=== PATIENT | female | born 1955 | race Caucasian/White ===

== ENCOUNTER 2023-02-12 15:59 | Emergency (ER) | payer OTHER ==
[2023-02-12 16:06] VITALS: BP 114/57; PULSE 77; RESP 18; BMI 34.2
[2023-02-12] MEDS ORDERED: LACTATED RINGERS SOLUTION 1,000 ML/1,000 ML INFUS.BAG IV ONE (16:42)
[2023-02-12] MEDS ORDERED: ACETAMINOPHEN 1000 MG/100 ML BAG IVPB ONE (16:42)
[2023-02-12] MEDS ORDERED: ACETAMINOPHEN INJECTION 100 ML IVPB ONE (17:17)
[2023-02-12 17:38] LABS: BASO % 0.3 % (0-2.0); EOS % 0.1 % (0-4.5); HEMATOCRIT 35.5 % (32.4-45.2); HEMOGLOBIN 11.9 GM/dL (10.7-15.3); MCH 28.9 pg (25.7-33.7); MCHC 33.6 g/dl (32.0-36.0); MEAN CELL VOLUME 85.9 fl (80-96); MEAN PLT VOLUME 7.3 fl (7.5-11.1); MONO % 12.6 % (3.8-10.2); PLATELET COUNT 183 10^3/uL (134-434); RBC 4.13 M/mm3 (3.60-5.2); WHITE BLOOD COUNT 4.2 K/mm3 (4.0-10.0)
[2023-02-12 17:45] LABS: INR 1.24 (0.83-1.09); PROTHROMBIN TIME (PATIENT) 14.3 SEC (9.7-13.0)
[2023-02-12 17:47] LABS: ACTIVATED PTT 29.6 SECONDS (25.2-36.5)
[2023-02-12 17:54] LABS: POTASSIUM 3.7 mmol/L (3.5-5.1)
[2023-02-12 17:56] LABS: CALCIUM 8.6 mg/dL (8.5-10.1)
[2023-02-12 17:57] LABS: ALBUMIN 3.4 g/dl (3.4-5.0); BLOOD UREA NITROGEN 15.5 mg/dL (7-18)
[2023-02-12 18:00] LABS: CREATININE 0.9 mg/dL (0.55-1.3)
[2023-02-12 18:01] LABS: BILIRUBIN,TOTAL 0.4 mg/dL (0.2-1); TOT PROT 7.4 g/dl (6.4-8.2)
[2023-02-12 21:06] VITALS: TEMP 99.8
== END 2023-02-12 21:07 | disposition home or self-care (01) ==
LOC: JER 15:59
PROC: 3E033NZ Introduction of Analgesics, Hypnotics, Sedatives into Peripheral Vein, Percutaneous Approach (ICD-10-PCS; principal; 2023-02-12)
PROC: 3E0337Z Introduction of Electrolytic and Water Balance Substance into Peripheral Vein, Percutaneous Approach (ICD-10-PCS; 2023-02-12)
DX: R50.9 Fever, unspecified (principal); R05.9 Cough, unspecified; R11.10 Vomiting, unspecified; R19.7 Diarrhea, unspecified; R63.0 Anorexia; R07.9 Chest pain, unspecified; J10.1 Influenza due to other identified influenza virus with other respiratory manifestations; Z20.822 Contact with and (suspected) exposure to COVID-19
CPT/HCPCS: 0241U-QW; 36415; 71045-TC-FY; 80053; 83735; 84484; 85025; 85610; 85730; 99284-25